=== PATIENT | male | born 1995 | race Hispanic/Latino ===

== ENCOUNTER 2017-10-09 15:09 | Emergency (ER) | payer OTHER ==
[~2017-10-09] VITALS: Ht 157.5 cm; Wt 59.0 kg
[2017-10-09] MEDS ORDERED: TRAMADOL HCL50 MG PO (16:56)
[2017-10-09] MEDS ORDERED: MOTRIN800 MG PO (16:56)
[2017-10-09 17:17] VITALS: BP 129/65
== END 2017-10-09 17:22 | disposition home or self-care (01) | DRG 605 ==
LOC: ED 15:09
DX: S80.12XA Contusion of left lower leg, initial encounter (principal); M79.604 Pain in right leg; R22.43 Localized swelling, mass and lump, lower limb, bilateral; S80.11XA Contusion of right lower leg, initial encounter; M79.605 Pain in left leg; S80.211A Abrasion, right knee, initial encounter; W30.89XA Contact with other specified agricultural machinery, initial encounter; Y93.89 Activity, other specified; Y92.89 Other specified places as the place of occurrence of the external cause